=== PATIENT | female | born 1950 | race Caucasian/White ===

== ENCOUNTER → 2018-02-27 | Outpatient (CLI) | payer OTHER ==
[~2018-02-27] MED LIST: CALCIUM 500 +1 EAC5 PO; COREG3.125 MG PO; DILAUDID2 MG PO; LEXAPRO20 MG PO; LISINOPRIL10 MG PO; MILK OF MA2400 MG/10 PO; ULTRAM50 MG PO; WELLBUTRIN XL300 MG PO; ZOFRAN ODT4 MG PO
== END ==
LOC: M.RAD 09:48
DX: Z12.31 Encounter for screening mammogram for malignant neoplasm of breast (principal)

== ENCOUNTER → 2018-09-20 | Outpatient (CLI) | payer OTHER | LOC: M.ULTRA 09-15 08:00 | DX: R10.13 Epigastric pain (principal); Z90.49 Acquired absence of other specified parts of digestive tract ==

== ENCOUNTER → 2019-04-02 | Outpatient (CLI) | payer OTHER | LOC: M.RAD 09:42 | DX: Z12.31 Encounter for screening mammogram for malignant neoplasm of breast (principal) ==

== ENCOUNTER → 2019-10-15 | Outpatient (CLI) | payer MEDICARE ==
--- NOTE | 2019-10-15 12:50 | 2DMMODE ---
[place] [address] 2 D/M-MODE ECHOCARDIOGRAM Name: ZIA ADAMES Room: [facility]#: [id number] Admission: 10/15/19 Attend Phys: Petar Snowden, Discharge: Date of : 48 Date of Service: 10/15/19 1249 Report #: [id number] THIS REPORT FOR: cc: Kellie Lugo Linda J. DO Blick,Jw Aviles MD [facility] ~ APPROVED REPORT Study performed: 10/15/2019 10:35:39 EXAM: Comprehensive 2D, Doppler, and color-flow Echocardiogram Patient Location: Out-Patient BSA: 1.60 Other Information Study Quality: Excellent Indications Cardiomyopathy 2D Dimensions IVSd: 10.06 (7-11mm) LVOT Diam: 20.20 (18-24mm) LVDd: 47.72 mm PWd: 10.06 (7-11mm) Ascending Ao: 27.00 (22-36mm) LVDs: 40.65 (25-40mm) Aortic Root: 27.09 mm Volumes Left Atrial Volume (Systole) LA ESV Index: 25.00 mL/m2 Aortic Valve AoV Peak Bo.: 0.92 m/s AO Peak Gr.: 3.36 mmHg LVOT Max P.45 mmHg AO Mean Gr.: 2.08 mmHg LVOT Mean P.77 mmHg LVOT Max V: 0.60 m/s AO V2 VTI: 17.78 cm LVOT Mean V: 0.41 m/s KRISTINA (VTI): 2.36 cm2 LVOT V1 VTI: 13.11 cm Mitral Valve E/A Ratio: 0.58 MV Decel. Time: 248.63 [place] [address] 2 D/M-MODE ECHOCARDIOGRAM Name: ZIA ADAMES Room: [facility]#: [id number] Admission: 10/15/19 Attend Phys: Petar Snowden, Discharge: Date of : 48 Date of Service: 10/15/19 1249 Report #: [id number] MV E Max Bo.: 0.43 m/s MV PHT: 72.10 ms MVA (PHT): 3.05 cm2 TDI E/Lateral E': 5.38 E/Medial E': 7.17 Medial E' Bo.: 0.06 m/s Lateral E' Bo.: 0.08 m/s Pulmonary Valve PV Peak Bo.: 0.87 m/s PV Peak Gr.: 3.03 mmHg Tricuspid Valve RAP Estimate: 5.00 mmHg TR Peak Gr.: 17.95 mmHg RVSP: 22.95 mmHg PA Pressure: 22.95 mmHg Left Ventricle Left ventricle is mildly dilated. There is global hypokinesis of the left ventricle. There is normal left ventricular wall thickness. Left ventricular systolic function is severely decreased. LVEF is 25-30%. Grade I - abnormal relaxation pattern. Right Ventricle The right ventricle is normal size. The right ventricular systolic function is normal. Atria The left atrium size is normal. The right atrium size is normal. Aortic Valve Aortic valve is mildly calcified. No aortic regurgitation is present. There is no aortic valvular stenosis. Mitral Valve The mitral valve is normal in structure. Mild mitral regurgitation. No evidence of mitral valve stenosis. Tricuspid Valve The tricuspid valve is normal in structure. Mild tricuspid regurgitation. Pulmonic Valve Pulmonic valve is not well visualized. There is no pulmonic [place] [address] 2 D/M-MODE ECHOCARDIOGRAM Name: ZIA ADAMES Room: [facility]#: [id number] Admission: 10/15/19 Attend Phys: Petar Snowden, Discharge: Date of : 48 Date of Service: 10/15/19 1249 Report #: [id number] Great Vessels The aortic root is normal in size. IVC is normal in size and collapses >50% with inspiration. Pericardium There is no pericardial effusion. <Conclusion> Left ventricle is mildly dilated. LVEF is 25-30%. Aortic valve is mildly calcified. Mild mitral regurgitation. <ELECTRONICALLY SIGNED> By: Jw Whitfield MD, FACC 10/15/19 1249 1249 1249 Jw Whitfield MD, FAC /INF
== END ==
LOC: M.CRD 10:40
DX: I08.3 Combined rheumatic disorders of mitral, aortic and tricuspid valves (principal)

== ENCOUNTER → 2020-02-21 | Outpatient (CLI) | payer MEDICARE ==
[2020-02-21] VITALS (8 sets, daily range): BP systolic 111–126; BP diastolic 56–99
[~2020-02-21] VITALS: Ht 162.6 cm; Wt 56.7 kg
[~2020-02-21] MED LIST changes: +ASA81BEC PO; +ENTRESTO 24 MG1 EACH PO; +GLUCOSAMIN-CHO1 EACH PO; +PEPCID40 MG PO; +PROTONIX40 M2 PO; +XANAX 0.25 MG0.25 MG PO
[2020-02-21 10:07] LABS: HEMATOCRIT 41.5 % (37.0-47.0); HEMOGLOBIN 13.9 gm/dL (12.0-15.0); MCH 31.3 pg (26.0-34.0); MCHC 33.5 g/dL (28.0-37.0); MCV 93.3 fL (80.0-100.0); MPV 7.6 fl. (7.2-11.1); RBC 4.45 mil/uL (4.20-5.00); RDW-CV 12.9 % (10.5-14.5); WBC 5.3 thou/uL (4.0-11.0)
[2020-02-21 10:14] LABS: ANION GAP 3 mmol/L (7-16); BUN 10 mg/dL (7-18); CALCIUM 7.9 mg/dL (8.5-10.1); CHLORIDE 105 mmol/L (98-107); CO2 31 mmol/L (21-32); CREATININE 0.8 mg/dL (0.6-1.3); GLUCOSE 75 mg/dL (70-99); POTASSIUM 3.5 mmol/L (3.5-5.1); SODIUM 139 mmol/L (136-145)
[2020-02-21 10:16] LABS: APTT 27.1 Seconds (25.0-31.3); INR 1.1; PROTIME 11.1 Seconds (9.20-11.50)
[2020-02-21 10:23] LABS: ALBUMIN 3.4 g/dL (3.4-5.0); ALKALINE PHOSPHATASE 71 U/L (46-116); CHOLESTEROL 174 mg/dL (<200); HDL CHOLESTEROL 52 mg/dL (>40); LDL CHOLESTEROL 102 mg/dL (<100); SGOT 18 U/L (15-37); SGPT 20 U/L (30-65); TC:HDL 3.3 Ratio (Not establshd); TOTAL BILIRUBIN 0.4 mg/dL (<0.1-1.0); TOTAL PROTEIN 6.2 g/dL (6.4-8.2); TRIGLYCERIDE 100 mg/dL (<150); VLDL 20 mg/dL (<40)
[2020-02-21 10:39] LABS: SERUM ASSESSMENT Clear
--- NOTE | 2020-02-21 17:31 | CARD ---
[address] [address] CARDIAC CATH REPORT Name: ZIA ADAMES Room: [facility] Eryn#: [id number] Admission: 02/21/20 Attend Phys: Petar Snowden MD Discharge: Date of : 48 Report #: [id number] THIS REPORT FOR: //name// cc: Kellie Lugo Linda J. DO ~ APPROVED REPORT Study performed: 02/21/2020 10:14:44 Patient Details Patient Status: Out-Patient Room #: The patient is a 69 year-old female Event Personnel Francois Mitchell RTR Monitor, Esmer Vargas RN RN, Sony ReeseubIis [employer] Procedures Performed Left Heart Cath w/or w/o Coronaries [id number] [facility] Hemostasis w/ Mynx Admission/Lab Medications/Medications given during procedure Fentanyl IV 25 mcg, Midazolam (Versed) IV 1 mg, Lidocaine Subcut 20 ml Procedure Narrative The patient was brought electively to the Cardiac Catheterization Laboratory and was prepped and draped in a sterile manner. The right femoral was infiltrated with 2% Lidocaine subcutaneous anesthesia. A Coram 6 FR sheath was inserted into the right femoral artery. Coronary angiography was performed using coronary diagnostic catheters. The right coronary system was accessed and visualized with a Diagnostic JR4 6Fr catheter. The left coronary system was accessed and visualized with a Diagnostic JL4 6Fr catheter. The left ventricle was accessed and visualized with a Diagnostic [address] 6Fr catheter. Closure device was deployed with a 6 Fr Mynx. The patient tolerated the procedure well and there were no complications associated with the procedure. There was no hematoma. Intraoperative Conscious Sedation Sedation start time: 1059 Case end Time: 1109 Fentanyl 25 mcg Versed 1 mg Fluoro Time: 1.3 [place] [address] CARDIAC CATH REPORT Name: ZIA ADAMES Room: [facility]#: [id number] Admission: 02/21/20 Attend Phys: Petar Snowden MD Discharge: Date of : 48 Report #: [id number] Dose: DAP [id number] cGycm2 244.37 mGy Contrast Type and Amount: Visipaque 80 ml Coronary Angiography The patient's coronary anatomy is left dominant. Diagnostic Cath Left Main The left main coronary artery is normal and bifurcates into a left anterior descending and the circumflex coronary artery. LAD The left anterior descending coronary artery is normal in its proximal mid and distal portion. Diagonal 1 A moderate sized branch diagonal vessel is normal. Circumflex The circumflex coronary artery is dominant. The circumflex coronary artery is normal in its proximal mid and distal portion. OM1 The first obtuse marginal branch is small in caliber and normal. OM2 The second obtuse marginal branch is small in caliber and normal. OM3 The third obtuse marginal branch is large in caliber and branched. The vessel is normal. L PDA The left PDA is normal. L SHAMIKA A left posterior lateral LV branch is normal. Right Coronary The small nondominant right coronary artery is normal. Left Ventriculography The left ventricle is normal in size with Moderately decreased contractility. The left ventricular ejection fraction is estimated to be 30-35%. Left ventricular wall motion abnormalities are not present. The coronary angiography and left ventriculography findings are consistent with a non-vent Hemodynamics The aortic pressure is 145/67 mmHg with a mean of 102 mmHg. The left ventricular pressure is 149/0 mmHg with a mean of mmHg. The left ventricular end diastolic pressure is 11 mmHg. Conclusion 1. Normal coronary arteries. 2. Normal left ventricular end-diastolic pressure. 3. Moderately reduced left ventricular systolic function with global hypokinesis consistent with [place] [address] CARDIAC CATH REPORT Name: ZIA ADAMES Room: [facility]#: [id number] Admission: 02/21/20 Attend Phys: Petar Snowden MD Discharge: Date of : 48 Report #: [id number] Recommendations 1. Continue medical management for congestive heart failure. <ELECTRONICALLY SIGNED> By: Petar Snowden MD, [facility] 02/21/20 1731 173 1731[facility] Snowden MD, FACC /INF
== END | disposition home or self-care (01) ==
LOC: M.CL 09:26
PROVIDERS: ATTEND Internal Medicine Cardiovascular Disease
DX: R07.9 Chest pain, unspecified (principal); I50.20 Unspecified systolic (congestive) heart failure; Z98.890 Other specified postprocedural states; Z79.899 Other long term (current) drug therapy; Z90.49 Acquired absence of other specified parts of digestive tract; Z90.710 Acquired absence of both cervix and uterus; Z96.651 Presence of right artificial knee joint; Z79.82 Long term (current) use of aspirin; Z88.8 Allergy status to other drugs, medicaments and biological substances

== ENCOUNTER → 2020-05-01 | Outpatient (CLI) | payer MEDICARE ==
[2020-05-01 15:30] LABS: CALCIUM 9.2 mg/dL (8.5-10.1); CREATININE 0.9 mg/dL (0.6-1.3)
== END ==
LOC: M.LAB 14:37
PROVIDERS: ATTEND Registered Nurse
DX: I42.8 Other cardiomyopathies (principal)

== ENCOUNTER → 2020-06-04 | Outpatient (CLI) | payer MEDICARE ==
[2020-06-04 09:34] LABS: CALCIUM 9.4 mg/dL (8.5-10.1); CREATININE 0.9 mg/dL (0.6-1.3); POTASSIUM 5.4 mmol/L (3.5-5.1)
== END ==
LOC: M.LAB 09:08
PROVIDERS: ATTEND Internal Medicine Cardiovascular Disease
DX: I42.8 Other cardiomyopathies (principal)

== ENCOUNTER → 2020-06-10 | Outpatient (CLI) | payer MEDICARE ==
--- NOTE | 2020-06-10 17:58 | 2DMMODE ---
[place] [address] 2 D/M-MODE ECHOCARDIOGRAM Name: LUZMARIA ADAMES Room: [facility]#: [id number] Admission: 06/10/20 Attend Phys: Petar Snowden, Discharge: Date of : 48 Date of Service: 06/10/20 1758 Report #: [id number] THIS REPORT FOR: cc: Kellie Lugo Linda J. DO Holkins,Wolf Tello MD [facility] ~ APPROVED REPORT Study performed: 06/10/2020 10:03:04 EXAM: Comprehensive 2D, Doppler, and color-flow Echocardiogram Patient Location: Out-Patient BSA: 1.62 HR: 73 bpm BP: 86/62 mmHg Other Information Study Quality: Good Indications Cardiomyopathy 2D Dimensions IVSd: 8.21 (7-11mm) LVOT Diam: 18.83 (18-24mm) LVDd: 46.94 mm PWd: 9.33 (7-11mm) Ascending Ao: 29.49 (22-36mm) LVDs: 33.24 (25-40mm) Aortic Root: 26.39 mm Volumes Left Atrial Volume (Systole) LA ESV Index: 21.80 mL/m2 Aortic Valve AoV Peak Bo.: 0.89 m/s AO Peak Gr.: 3.18 mmHg LVOT Max P.26 mmHg AO Mean Gr.: 1.96 mmHg LVOT Mean P.66 mmHg LVOT Max V: 0.56 m/s AO V2 VTI: 17.74 cm LVOT Mean V: 0.37 m/s KRISTINA (VTI): 1.95 cm2 LVOT V1 VTI: 12.40 cm Mitral Valve E/A Ratio: 0.68 [place] [address] 2 D/M-MODE ECHOCARDIOGRAM Name: LUZMARIA ADAMES Room: [facility]#: [id number] Admission: 06/10/20 Attend Phys: Petar Snowden, Discharge: Date of : 48 Date of Service: 06/10/20 1758 Report #: [id number] MV Decel. Time: 203.05 ms MV E Max Bo.: 0.40 m/s MV PHT: 58.88 ms MVA (PHT): 3.74 cm2 TDI E/Lateral E': 4.44 E/Medial E': 5.71 Medial E' Bo.: 0.07 m/s Lateral E' Bo.: 0.09 m/s Pulmonary Valve PV Peak Bo.: 0.75 m/s PV Peak Gr.: 2.26 mmHg Tricuspid Valve RAP Estimate: 5.00 mmHg TR Peak Gr.: 17.88 mmHg RVSP: 22.88 mmHg PA Pressure: 22.88 mmHg Left Ventricle The left ventricle is normal size. There is normal LV segmental wall motion. There is normal left ventricular wall thickness. Left ventricular ejection fraction is mildly decreased. LVEF is 45%. Grade I - abnormal relaxation pattern. Right Ventricle The right ventricle is normal size. The right ventricular systolic function is normal. Atria The left atrium size is normal. The right atrium size is normal. Aortic Valve Mild aortic valve sclerosis. No aortic regurgitation is present. There is no aortic valvular stenosis. Mitral Valve The mitral valve is normal in structure Mild mitral regurgitation. No evidence of mitral valve stenosis. Tricuspid Valve The tricuspid valve is normal in structure. Mild tricuspid regurgitation. Pulmonic Valve The pulmonary valve is normal in structure. [place] [address] 2 D/M-MODE ECHOCARDIOGRAM Name: LUZMARIA ADAMES Room: [facility]#: [id number] Admission: 06/10/20 Attend Phys: Petar Snowden, Discharge: Date of : 48 Date of Service: 06/10/20 1758 Report #: [id number] valvular regurgitation. Great Vessels The aortic root is normal in size. IVC is normal in size and collapses >50% with inspiration. Pericardium There is no pericardial effusion. <Conclusion> The left ventricle is normal size. There is normal left ventricular wall thickness. Left ventricular ejection fraction is mildly decreased. LVEF is 45%. Grade I - abnormal relaxation pattern. The right ventricle is normal size. The left atrium size is normal. Mild aortic valve sclerosis. There is no aortic valvular stenosis. The mitral valve is normal in structure Mild mitral regurgitation. The tricuspid valve is normal in structure. Mild tricuspid regurgitation. IVC is normal in size and collapses >50% with inspiration. There is no pericardial effusion. There is normal LV segmental wall motion. <ELECTRONICALLY SIGNED> By: Wolf Krause MD, FACC 06/10/201757 57 57 Wolf Krause MD, FACC /INF
== END ==
LOC: M.CRD 09:27
PROVIDERS: ATTEND Internal Medicine Cardiovascular Disease
DX: I08.3 Combined rheumatic disorders of mitral, aortic and tricuspid valves (principal); I42.8 Other cardiomyopathies

== ENCOUNTER → 2020-06-18 | Outpatient (CLI) | payer MEDICARE ==
[2020-06-18 10:18] LABS: CALCIUM 8.7 mg/dL (8.5-10.1); CREATININE 0.9 mg/dL (0.6-1.3); POTASSIUM 4.3 mmol/L (3.5-5.1)
== END ==
LOC: M.LAB 09:36
PROVIDERS: ATTEND Registered Nurse
DX: I42.8 Other cardiomyopathies (principal)

== ENCOUNTER → 2021-04-22 | Outpatient (CLI) | payer MEDICARE | LOC: M.RAD 11:02 | PROVIDERS: ATTEND Family Medicine | DX: Z12.31 Encounter for screening mammogram for malignant neoplasm of breast (principal) ==